=== PATIENT | male | born 1965 | race Caucasian/White ===

== ENCOUNTER 2016-09-13 14:51 | Inpatient (IN) | payer BC, OTHER ==
[~2016-09-13] VITALS: Ht 160 cm; Wt 80.9 kg
[~2016-09-13 14:51] MED LIST: ALPR1TAB6 PO; CARV6.252 PO; CLOP75TA PO; LISI-338 PO; RANI150T2 PO; SENN8.6C2 PO; SIMV40TA3 PO
[2016-09-13 15:50] LABS: BASO # 0.1 x10^3/uL (0.0-0.2); BASO % 1 % (0-3); EOS % 0 % (0-3); HEMATOCRIT 49.8 % (39.0-53.0); HEMOGLOBIN 16.5 g/dL (13.0-17.5); LYMPH # 1.1 x10^3/uL (1.0-4.8); LYMPH % 11 % (24-48); MEAN CORPUSCULAR HEMOGLOBIN 29 pg (25-35); MEAN CORPUSCULAR HGB CONC 33 g/dL (31-37); MEAN CORPUSCULAR VOLUME 88 fL (79-100); MONO % 18 % (0-9); NEUT % 71 % (31-73); PLATELET COUNT 233 x10^3/uL (140-400); RED BLOOD COUNT 5.64 x10^6/uL (4.30-5.70); RED CELL DISTRIBUTION WIDTH 13.6 % (11.5-14.5)
--- NOTE | 2016-09-13 16:05 | RAD ---
Indication hyperglycemia. Cough. A single view of the chest was obtained. Comparison is made to an examination 12/14/2005. The patient is now postoperative. Heart size is unchanged. A focal infiltrate is not seen. Significant pleural fluid is not present. There is no pneumothorax. IMPRESSION: No acute finding apparent in the chest
[2016-09-13 16:11] LABS: ALBUMIN 3.3 g/dL (3.4-5.0); CALCIUM 8.5 mg/dL (8.5-10.1); CREATININE 1.1 mg/dL (0.7-1.3); DIRECT BILIRUBIN 0.1 mg/dL (0.0-0.2); GFR 71.4; POTASSIUM 4.8 mmol/L (3.5-5.1); TOTAL BILIRUBIN 0.5 mg/dL (0.2-1.0); TOTAL PROTEIN 7.7 g/dL (6.4-8.2)
[2016-09-13 17:46] LABS: HCO3 ABG 22 mmol/L (21-28); PCO2 ABG 39 mmHg (35-46); PH ABG 7.38 (7.35-7.45); PO2 ABG 60 mmHg (75-108); SAT O2 ABG 91 % (92-99)
[2016-09-13 17:47] LABS: FIO2 ABG 21
--- NOTE | 2016-09-13 17:58 | PHYS DOC ---
Past Medical History Past Medical History: Anxiety, COPD, CVA, Diabetes-Type II, GERD, High Cholesterol, Hypertension, [place] Additional Past Medical Histor: X 2 CARDIAC STENTS,SLEEP DISORDER Past Surgical History: Coronary Bypass Surgery Additional Past Surgical Histo: PIG HEART VALVE Alcohol Use: Rarely Drug Use: None Adult General Chief Complaint Chief Complaint: NAUSEA/VOMITING/DIARRHA HPI HPI 50-year-old male presenting to the emergency department today with cough watery diarrhea nausea vomiting. This all started approximately 24-48 hours ago. He denies abdominal pain chest pain or shortness of breath. His cough is nonproductive. He denies fevers or chills. Location lungs and GI tract. Duration intermittent. No alleviating factors. No specific timing present. Nonradiating. Review of systems is negative for chest pain shortness of breath abdominal pain. Positive for diarrhea. All other review of systems is negative unless otherwise noted in history of present illness. Review of Systems Review of Systems SEE ABOVE. Current Medications Current Medications Current Medications Medications (Trade) Dose Ordered Sig/Monica Start Time Stop Time Status Last Admin Dose Admin Insulin Human Regular 10 unit 10 unit 1X ONCE 09/13/16 18:00 09/13/16 18:01 UNV Sodium Chloride (Iv Sodium Chloride 0.9% 1000ml Bag) 1,000 ml @ 1,000 mls/hr 1X ONCE 09/13/16 18:00 09/13/16 18:59 UNV Allergies Allergies Allergies Coded Allergies Type Severity Reaction Last Updated Verified Penicillins Allergy Severe anaphylaxis 06/13/16 Yes Tetracyclines Allergy Severe 06/13/16 No aspirin Allergy Severe Anaphylaxis 06/13/16 No Uncoded Allergies Type Severity Reaction Last Updated Verified mushrooms Allergy Severe 06/13/16 Physical Exam Physical Exam Constitutional: Well developed, well nourished, no acute distress, non-toxic appearance. HENT: Normocephalic, atraumatic, bilateral external ears normal, oropharynx moist, no oral exudates, nose normal. [] Eyes: PERRLA, EOMI, conjunctiva normal, no discharge. Neck: Normal range of motion, no tenderness, supple, no stridor. Cardiovascular:Heart rate regular rhythm, no murmur [] Lungs & Thorax: Bilateral breath sounds clear to auscultation Abdomen: Soft nontender abdomen without rebound tenderness or guarding present. Negative McBurneys point. Negative Bose sign. No ecchymosis present. Skin: Warm, dry, no erythema, no rash. [] Back: No tenderness, no CVA tenderness. Extremities: No tenderness, no cyanosis, no clubbing, ROM intact, no edema. [] Neurologic: Alert and oriented X 3, normal motor function, normal sensory function, no focal deficits noted. Psychologic: Affect normal, judgement normal, mood normal. [] Current Patient Data Vital Signs Vital Signs Date Time Temp Pulse Resp B/P Pulse Ox O2 Delivery O2 Flow Rate FiO2 09/13/16 15:07 22 121/72 94 Room Air Lab Values Laboratory Tests Test 09/13/16 15:20 09/13/16 15:39 09/13/16 16:10 09/13/16 17:40 White Blood Count 10.0x10^3/uL (4.0-11.0) Red Blood Count 5.64x10^6/uL (4.30-5.70) Hemoglobin 16.5g/dL (13.0-17.5) Hematocrit 49.8% (39.0-53.0) Mean Corpuscular Volume 88fL (79-100) Mean Corpuscular Hemoglobin 29pg (25-35) Mean Corpuscular Hemoglobin Concent 33g/dL (31-37) Red Cell Distribution Width 13.6% (11.5-14.5) Platelet Count 233x10^3/uL (140-400) Neutrophils (%) (Auto) 71% (31-73) Lymphocytes (%) (Auto) 11% (24-48) L Monocytes (%) (Auto) 18% (0-9) H Eosinophils (%) (Auto) 0% (0-3) Basophils (%) (Auto) 1% (0-3) Neutrophils # (Auto) 7.1x10^3uL (1.8-7.7) Lymphocytes # (Auto) 1.1x10^3/uL (1.0-4.8) Monocytes # (Auto) 1.8x10^3/uL (0.0-1.1) H Eosinophils # (Auto) 0.0x10^3/uL (0.0-0.7) Basophils # (Auto) 0.1x10^3/uL (0.0-0.2) Sodium Level 131mmol/L (136-145) L Potassium Level 4.8mmol/L (3.5-5.1) Chloride Level 94mmol/L (98-107) L Carbon Dioxide Level 24mmol/L (21-32) Anion Gap 13 (6-14) Blood Urea Nitrogen 15mg/dL (8-26) Creatinine 1.1mg/dL (0.7-1.3) Estimated GFR (Cockcroft-Gault) 71.4 Glucose Level 638mg/dL (70-99) *H Serum Osmolality 310mOsm/Kg (279-304) H Calcium Level 8.5mg/dL (8.5-10.1) Total Bilirubin 0.5mg/dL (0.2-1.0) Direct Bilirubin 0.1mg/dL (0.0-0.2) Aspartate Amino Transferase (AST) 22U/L (15-37) Alanine Aminotransferase (ALT) 13U/L (16-63) L Alkaline Phosphatase 103U/L (46-116) US-Wag-O-Type Natriuretic Peptide 171pg/mL (0-124) H Total Protein 7.7g/dL (6.4-8.2) Albumin 3.3g/dL (3.4-5.0) L Lipase 100U/L (73-393) Troponin I Quantitative < 0.017ng/mL (0.000-0.055) Lactic Acid Level 1.4mmol/L (0.4-2.0) O2 Saturation 91% (92-99) L Arterial Blood pH 7.38 (7.35-7.45) Arterial Blood pCO2 at Patient Temp 39mmHg (35-46) Arterial Blood pO2 at Patient Temp 60mmHg (75-108) L Arterial Blood HCO3 22mmol/L (21-28) Arterial Blood Base Excess -3mmol/L (-3-3) FiO2 21 Laboratory Tests 09/13/16 15:20 Laboratory Tests 09/13/16 15:20 EKG EKG EKG shows sinus tachycardia. [place] is leftward. Intervals are within normal limits. ST segments are congruent. Varying baseline present. [] Course & Med Decision Making Course & Med Decision Making Pertinent Labs and Imaging studies reviewed. (See chart for details) [] 42-year-old male presenting to the emergency department today with hyperglycemia and nausea vomiting and diarrhea. On examination the patient's vital signs showed that he was tachycardic with mild low SPO2 otherwise normal blood pressure. Physical exam showed tachycardia otherwise nontender abdomen. EKG unremarkable area mild LVH. Chest x-ray unremarkable. Blood work sent which showed hyperglycemia without evidence of acidosis. The patient was given insulin and IV fluids in the emergency department and admitted to Dr. Villanueva the patient's primary care provider for further evaluation workup and care. Dragon Disclaimer Dragon Disclaimer This electronic medical record was generated, in whole or in part, using a voice recognition dictation system. Departure Departure Impression: Primary Impression: Hyperglycemia Additional Impression: Hyperosmolarity due to secondary diabetes Disposition: ADMITTED INPATIENT Admitting Physician: Ron Casiano Condition: STABLE Referrals: AILIN AGUILAR MD (PCP) Problem Qualifiers ANNY VALE MD Sep 13, 2016 17:58
[2016-09-13] MEDS ORDERED: INSULIN REGULAR 100 UNIT/ML 10ML VIAL. IV ONE (18:00)
[2016-09-13] MEDS ORDERED: IV NORMAL SALINE 1000ML BAG 1,000 ML IV ONE ×2 (18:00)
[2016-09-13 18:25] LABS: BILIRUBIN,URINE NEGATIVE (NEG); GLUCOSE,URINE >=1000 mg/dL (NEG); NITRITE,URINE NEGATIVE (NEG); PROTEIN,URINE NEGATIVE (NEG-TRACE); UROBILINOGEN,URINE 0.2 mg/dL (0.2 mg/dL)
[2016-09-13 18:34] LABS: BACTERIA,URINE 0 /HPF (0-FEW); RBC,URINE 0 /HPF (0-2); SQUAMOUS EPITHELIAL CELL,UR OCC /LPF; WBC,URINE OCC /HPF (0-4)
[2016-09-13 19:30] VITALS: BP 130/81
--- NOTE | 2016-09-13 20:16 | ACF ---
Admission Forms Criteria Admission Criteria Met?: Pending STEPHENIE MAYEN Sep 13, 2016 20:16 ANNY VALE MD Sep 19, 2016 23:28
[2016-09-13] MEDS ORDERED: TRAZ100T12 PO (21:29)
[2016-09-13] MEDS ORDERED: INSU100V13 SQ (21:39)
[2016-09-13] MEDS ORDERED: INSU100C4 SQ (21:39)
[2016-09-13] MEDS ORDERED: INSULIN DETEMIR 300 UNITS/3 ML INSULN.PEN. SQ SCH (22:00)
[2016-09-13] MEDS: SIMVASTATIN 40 MG TABLET. PO SCH (22:53)
[2016-09-13] MEDS: FAMOTIDINE 20 MG TABLET. PO SCH (22:53)
[2016-09-13 23:00] VITALS: BP 109/65
[2016-09-13] MEDS ORDERED: traZODone 100 MG TABLET. PO ONE (23:00)
[2016-09-13] MEDS ORDERED: ALPRAZOLAM 1 MG TABLET PO ONE (23:00)
[2016-09-14 03:00] VITALS: BP 107/65
--- NOTE | 2016-09-14 06:32 | EKG ---
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
[2016-09-14 07:05] VITALS: BP 93/60
[2016-09-14] MEDS ORDERED: INSULIN ASPART 300 UNITS/3 ML INSULN.PEN SQ SCH (07:30)
[2016-09-14] MEDS: INSULIN ASPART 300 UNITS/3 ML INSULN.PEN SQ SCH ×3 (08:30→16:30)
[2016-09-14] MEDS: INSULIN DETEMIR 300 UNITS/3 ML INSULN.PEN. SQ SCH ×2 (09:00→21:45)
[2016-09-14] MEDS: CARVEDILOL 6.25 MG TABLET PO SCH ×2 (09:02→17:16)
[2016-09-14] MEDS: CLOPIDOGREL BISULFATE 75 MG TABLET PO SCH (09:02)
[2016-09-14] MEDS: LISINOPRIL 5 MG TABLET. PO SCH (09:02)
[2016-09-14] MEDS: FAMOTIDINE 20 MG TABLET. PO SCH ×2 (09:02→21:35)
--- NOTE | 2016-09-14 10:13 | PDOC ---
OBJECTIVE Vital Signs Vital Signs Date Time Temp Pulse Resp B/P Pulse Ox O2 Delivery O2 Flow Rate FiO2 09/14/16 09:02 99 107/65 09/14/16 09:02 99 107/65 09/14/16 07:05 99.5 104 16 93/60 94 Room Air 99.5 09/14/16 03:00 97.9 99 18 107/65 91 Room Air 97.9 09/14/16 02:00 Room Air 09/13/16 23:00 97.7 89 18 109/65 92 Room Air 97.7 09/13/16 19:30 98.2 93 16 130/81 95 Room Air 98.2 09/13/16 18:30 77 112/64 95 Room Air 09/13/16 17:15 88 117/62 93 Room Air 09/13/16 16:15 75 112/83 94 Room Air 09/13/16 15:07 22 121/72 94 Room Air I & O Intake and Output 09/14/16 07:00 Intake Total 1000 ml Balance 1000 ml IV Total 1000 ml # Bowel Movements 4 ASSESSMENT/PLAN Assessment/Plan [id number] H&P dictated Problems: COMMENT Lab Laboratory Tests Test 09/13/16 15:20 09/13/16 15:39 09/13/16 16:10 09/13/16 17:40 White Blood Count 10.0x10^3/uL (4.0-11.0) Red Blood Count 5.64x10^6/uL (4.30-5.70) Hemoglobin 16.5g/dL (13.0-17.5) Hematocrit 49.8% (39.0-53.0) Mean Corpuscular Volume 88fL (79-100) Mean Corpuscular Hemoglobin 29pg (25-35) Mean Corpuscular Hemoglobin Concent 33g/dL (31-37) Red Cell Distribution Width 13.6% (11.5-14.5) Platelet Count 233x10^3/uL (140-400) Neutrophils (%) (Auto) 71% (31-73) Lymphocytes (%) (Auto) 11% (24-48) Monocytes (%) (Auto) 18% (0-9) Eosinophils (%) (Auto) 0% (0-3) Basophils (%) (Auto) 1% (0-3) Neutrophils # (Auto) 7.1x10^3uL (1.8-7.7) Lymphocytes # (Auto) 1.1x10^3/uL (1.0-4.8) Monocytes # (Auto) 1.8x10^3/uL (0.0-1.1) Eosinophils # (Auto) 0.0x10^3/uL (0.0-0.7) Basophils # (Auto) 0.1x10^3/uL (0.0-0.2) Sodium Level 131mmol/L (136-145) Potassium Level 4.8mmol/L (3.5-5.1) Chloride Level 94mmol/L (98-107) Carbon Dioxide Level 24mmol/L (21-32) Anion Gap 13 (6-14) Blood Urea Nitrogen 15mg/dL (8-26) Creatinine 1.1mg/dL (0.7-1.3) Estimated GFR (Cockcroft-Gault) 71.4 Glucose Level 638mg/dL (70-99) Serum Osmolality 310mOsm/Kg (279-304) Calcium Level 8.5mg/dL (8.5-10.1) Total Bilirubin 0.5mg/dL (0.2-1.0) Direct Bilirubin 0.1mg/dL (0.0-0.2) Aspartate Amino Transf (AST/SGOT) 22U/L (15-37) Alanine Aminotransferase (ALT/SGPT) 13U/L (16-63) Alkaline Phosphatase 103U/L (46-116) RX-Uhb-C-Type Natriuretic Peptide 171pg/mL (0-124) Total Protein 7.7g/dL (6.4-8.2) Albumin 3.3g/dL (3.4-5.0) Lipase 100U/L (73-393) Troponin I Quantitative < 0.017ng/mL (0.000-0.055) Lactic Acid Level 1.4mmol/L (0.4-2.0) O2 Saturation 91% (92-99) Arterial Blood pH 7.38 (7.35-7.45) Arterial Blood pCO2 at Patient Temp 39mmHg (35-46) Arterial Blood pO2 at Patient Temp 60mmHg (75-108) Arterial Blood HCO3 22mmol/L (21-28) Arterial Blood Base Excess -3mmol/L (-3-3) FiO2 21 Test 09/13/16 18:13 09/13/16 20:50 09/14/16 07:11 09/14/16 07:57 Urine Color Yellow Urine Clarity Clear Urine pH 5.0 Urine Specific Tolar >=1.030 Urine Protein Negativemg/dL (NEG-TRACE) Urine Glucose (UA) >=1000mg/dL (NEG) Urine Ketones (Stick) 15mg/dL (NEG) Urine Blood Negative (NEG) Urine Nitrite Negative (NEG) Urine Bilirubin Negative (NEG) Urine Urobilinogen Dipstick 0.2mg/dL (0.2 mg/dL) Urine Leukocyte Esterase Negative (NEG) Urine RBC 0/HPF (0-2) Urine WBC Occ/HPF (0-4) Urine Squamous Epithelial Cells Occ/LPF Urine Bacteria 0/HPF (0-FEW) Glucose (Fingerstick) 440mg/dL (70-99) 263mg/dL (70-99) 268mg/dL (70-99) MARCIN REED MD Sep 14, 2016 10:13
[2016-09-14 11:27] VITALS: BP 95/60
[2016-09-14] MEDS: IV 1/2 NORMAL SALINE 1,000 ML IV SCH ×2 (11:38→12:03)
[2016-09-14 14:01] LABS: OBC FLU VALID
[2016-09-14 14:45] LABS: NEG OBC FOB NEG; POS OBC FOB POS
[2016-09-14 15:23] VITALS: BP 112/69
[2016-09-14 19:00] VITALS: BP 92/59
--- NOTE | 2016-09-14 20:29 | PREOP HP ---
DATE OF SERVICE: PATIENT'S ROOM: 521. HISTORY OF PRESENT ILLNESS: The patient is a 50-year-old gentleman who presented to the Emergency Room complaining of cough, watery diarrhea, nausea and vomiting. He started with these symptoms about 2-3 days prior to arrival. Has been having abdominal pain, nausea and vomiting, cough and shortness of breath. His cough is dry and nonproductive. He denies fever or chills. He had stopped taking his insulin because of the nausea, vomiting, diarrhea. He was afraid he will be too low. On his arrival, his blood sugar was very high over 400. PAST MEDICAL HISTORY: Significant for diabetes mellitus, insulin requiring, COPD, asthma, gastroesophageal reflux disease, anxiety, coronary artery disease and previous heart attack, previous coronary artery bypass graft, valve replacement and coronary stent. He also has a previous history of CVA with no residual, hyperlipidemia and hypertension. REVIEW OF SYSTEMS: CONSTITUTIONAL: Denies fever or chills. EYES: Denies visual changes. UPPER RESPIRATORY: Denies sore throat, but does have congestion. RESPIRATORY: He does have dry cough. CARDIAC: Does have chest pain due to coughing. GASTROINTESTINAL: Nausea, vomiting, diarrhea as mentioned above. No melena or hematochezia. GENITOURINARY: He does have urinary frequency. NEUROLOGICAL: Denies focal deficit or headache. PHYSICAL EXAMINATION: GENERAL: Well developed, well nourished, in no acute distress. HEENT: Normocephalic, atraumatic. Eyes: Pupils equal, reactive to light and accommodation. NECK: Supple. HEART: Regular rate and rhythm. LUNGS: Fairly clear to auscultation. ABDOMEN: Soft, nontender, no organomegaly, no masses, no bruits, no ascites. EXTREMITIES: No edema, clubbing or cyanosis. NEUROLOGIC: Alert and oriented with no focal deficit. DERMATOLOGY: No rashes. IMPRESSION: 1. Gastroenteritis symptoms. The patient is admitted for IV hydration. We will send stool for culture. 2. Hyperglycemia. 3. Diabetes mellitus type 2, insulin requiring. 4. Hyponatremia due to nausea and vomiting. 5. Coronary artery disease and history of coronary artery bypass graft. 6. History of valve replacement. 7. Hypertension. 8. Hyperlipidemia. 9. COPD and asthma. 10. Gastroesophageal reflux disease. MARCIN REED MD DR: Rich JOB#: [id number] / [id number]
[2016-09-14] MEDS: traZODone 100 MG TABLET. PO SCH (21:35)
[2016-09-14] MEDS: ALPRAZOLAM 1 MG TABLET PO SCH (21:35)
[2016-09-14] MEDS: SIMVASTATIN 40 MG TABLET. PO SCH (21:36)
[2016-09-14 23:00] VITALS: BP 86/53
[2016-09-14] MEDS ORDERED: IPRATRPIUM/ALBUTEROL 0.5/2.5MG 3 ML NEBU. NEB ONE (23:30)
[2016-09-15 03:03] VITALS: BP 92/61
[2016-09-15] MEDS ORDERED: DEXTROSE 50% 25 GM / 50ML DISP.SYRIN. IV PRN (03:30)
[2016-09-15 05:54] LABS: HEMATOCRIT 41.3 % (39.0-53.0); HEMOGLOBIN 14.1 g/dL (13.0-17.5); RED BLOOD COUNT 4.84 x10^6/uL (4.30-5.70); RED CELL DISTRIBUTION WIDTH 13.2 % (11.5-14.5); WHITE BLOOD COUNT 8.3 x10^3/uL (4.0-11.0)
[2016-09-15] MEDS: IV 1/2 NORMAL SALINE 1,000 ML IV SCH ×2 (05:54→11:40)
[2016-09-15 06:14] LABS: CALCIUM 8.3 mg/dL (8.5-10.1); CREATININE 0.6 mg/dL (0.7-1.3); GFR 143.8; POTASSIUM 3.1 mmol/L (3.5-5.1)
[2016-09-15 07:00] VITALS: BP 87/48
[2016-09-15] MEDS: INSULIN ASPART 300 UNITS/3 ML INSULN.PEN SQ SCH ×6 (07:30→17:36)
[2016-09-15] MEDS: CARVEDILOL 6.25 MG TABLET PO SCH (08:00)
[2016-09-15] MEDS: FAMOTIDINE 20 MG TABLET. PO SCH ×2 (08:57→20:16)
[2016-09-15] MEDS: CLOPIDOGREL BISULFATE 75 MG TABLET PO SCH (08:57)
[2016-09-15] MEDS: LISINOPRIL 5 MG TABLET. PO SCH (09:00)
[2016-09-15] MEDS: INSULIN DETEMIR 300 UNITS/3 ML INSULN.PEN. SQ SCH ×2 (09:00→20:21)
[2016-09-15] MEDS: IPRATRPIUM/ALBUTEROL 0.5/2.5MG 3 ML NEBU. NEB SCH ×4 (09:03→20:18)
[2016-09-15 11:00] VITALS: BP 99/56
--- NOTE | 2016-09-15 12:53 | PDOC ---
SUBJECTIVE Subjective no N/V but still with diarrhea, no further cough OBJECTIVE Vital Signs Vital Signs Date Time Temp Pulse Resp B/P Pulse Ox O2 Delivery O2 Flow Rate FiO2 09/15/16 12:26 Room Air 09/15/16 11:00 97.7 84 17 99/56 93 Room Air 97.7 09/15/16 09:05 97 Room Air 09/15/16 08:00 Room Air 09/15/16 07:00 97.5 85 17 87/48 92 Room Air 97.5 09/15/16 03:03 96.3 89 18 92/61 92 Room Air 96.3 09/14/16 23:42 97 Room Air 09/14/16 23:00 97.7 86 20 86/53 94 Room Air 97.7 09/14/16 19:00 97.7 89 20 92/59 92 Room Air 97.7 09/14/16 17:16 91 112/69 09/14/16 15:23 97.9 91 14 112/69 95 Room Air 97.9 I & O Intake and Output 09/15/16 07:00 Intake Total 3759 ml Output Total 450 ml Balance 3309 ml Intake Oral 1800 ml IV Total 1000 ml Other 959 ml Output Urine Total 450 ml # Bowel Movements 1 PHYSICAL EXAM Physical Exam lungs clear heart RRR abd soft ext no edema ASSESSMENT/PLAN Assessment/Plan 1. Gastroenteritis still with diarrhea continue hydration c.diff neg, stool guaiac neg, supportive. 2. Hyperglycemia.improved 3. hypokalemia replacing 4. Diabetes mellitus type 2, insulin requiring. 5. Hyponatremia due to nausea and vomiting.improved 6. Coronary artery disease and history of coronary artery bypass graft. 7. History of valve replacement. 8. Hypertension. 9. Hyperlipidemia. 10. COPD and asthma. 11. Gastroesophageal reflux disease. hope continue to improve if so plan home in AM Problems: COMMENT Lab Laboratory Tests Test 09/14/16 12:57 09/14/16 13:25 09/14/16 17:00 09/14/16 20:12 Influenza Type A Antigen Negative (NEGATIVE) Influenza Type B Antigen Negative (NEGATIVE) Stool Occult Blood Negative (NEG) Glucose (Fingerstick) 91mg/dL (70-99) 161mg/dL (70-99) Test 09/15/16 05:05 09/15/16 08:17 09/15/16 11:44 White Blood Count 8.3x10^3/uL (4.0-11.0) Red Blood Count 4.84x10^6/uL (4.30-5.70) Hemoglobin 14.1g/dL (13.0-17.5) Hematocrit 41.3% (39.0-53.0) Mean Corpuscular Volume 85fL (79-100) Mean Corpuscular Hemoglobin 29pg (25-35) Mean Corpuscular Hemoglobin Concent 34g/dL (31-37) Red Cell Distribution Width 13.2% (11.5-14.5) Platelet Count 190x10^3/uL (140-400) Sodium Level 138mmol/L (136-145) Potassium Level 3.1mmol/L (3.5-5.1) Chloride Level 105mmol/L (98-107) Carbon Dioxide Level 26mmol/L (21-32) Anion Gap 7 (6-14) Blood Urea Nitrogen 10mg/dL (8-26) Creatinine 0.6mg/dL (0.7-1.3) Estimated GFR (Cockcroft-Gault) 143.8 Glucose Level 129mg/dL (70-99) Calcium Level 8.3mg/dL (8.5-10.1) Glucose (Fingerstick) 108mg/dL (70-99) 176mg/dL (70-99) MARCIN REED MD Sep 15, 2016 12:53
[2016-09-15] MEDS ORDERED: POTASSIUM CHLORIDE 20 MEQ TABLET.ER. PO ONE (13:00)
[2016-09-15] MEDS: POTASSIUM CHLORIDE 30 MEQ in IV 1/2 NORMAL SALINE 1,000 ML IV SCH (13:32)
[2016-09-15 15:00] VITALS: BP 87/49
[2016-09-15] MEDS: CARVEDILOL 3.125 MG TABLET PO SCH (17:33)
[2016-09-15 19:00] VITALS: BP 92/46
[2016-09-15] MEDS ORDERED: MINERAL OIL/PETROLATUM,WHITE OPHTH OINT 3.5GM TUBE. OU PRN (19:15)
[2016-09-15] MEDS: ALPRAZOLAM 1 MG TABLET PO SCH (20:15)
[2016-09-15] MEDS: POLYVINYL ALCOHOL 1.4% OPHTH SOLUTION 15ML BOTTLE. OU PRN (20:15)
[2016-09-15] MEDS: SIMVASTATIN 40 MG TABLET. PO SCH (20:16)
[2016-09-15] MEDS: traZODone 100 MG TABLET. PO SCH (20:16)
[2016-09-15 23:00] VITALS: BP 102/64
[2016-09-16 03:00] VITALS: BP 105/70
[2016-09-16] MEDS: POTASSIUM CHLORIDE 30 MEQ in IV 1/2 NORMAL SALINE 1,000 ML IV SCH (04:05)
[2016-09-16 07:00] VITALS: BP 102/62
[2016-09-16 07:27] LABS: HEMATOCRIT 41.3 % (39.0-53.0); HEMOGLOBIN 13.5 g/dL (13.0-17.5); RED BLOOD COUNT 4.72 x10^6/uL (4.30-5.70); RED CELL DISTRIBUTION WIDTH 13.2 % (11.5-14.5); WHITE BLOOD COUNT 8.4 x10^3/uL (4.0-11.0)
[2016-09-16] MEDS: INSULIN ASPART 300 UNITS/3 ML INSULN.PEN SQ SCH ×6 (07:30→17:00)
[2016-09-16 07:42] LABS: CALCIUM 8.6 mg/dL (8.5-10.1); CREATININE 0.7 mg/dL (0.7-1.3); GFR 120.4; POTASSIUM 4.3 mmol/L (3.5-5.1)
[2016-09-16] MEDS: IPRATRPIUM/ALBUTEROL 0.5/2.5MG 3 ML NEBU. NEB SCH ×4 (07:50→20:16)
[2016-09-16] MEDS: CARVEDILOL 3.125 MG TABLET PO SCH ×2 (08:51→17:19)
[2016-09-16] MEDS: FAMOTIDINE 20 MG TABLET. PO SCH ×2 (08:51→21:16)
[2016-09-16] MEDS: CLOPIDOGREL BISULFATE 75 MG TABLET PO SCH (08:51)
[2016-09-16] MEDS ORDERED: INSULIN DETEMIR 300 UNITS/3 ML INSULN.PEN. SQ ONE (09:00)
[2016-09-16] MEDS: LISINOPRIL 5 MG TABLET. PO SCH (09:00)
[2016-09-16] MEDS: POLYVINYL ALCOHOL 1.4% OPHTH SOLUTION 15ML BOTTLE. OU PRN (09:54)
[2016-09-16 10:39] VITALS: BP 94/56
--- NOTE | 2016-09-16 10:56 | PDOC ---
SUBJECTIVE Subjective [id number] is better OBJECTIVE Vital Signs Vital Signs Date Time Temp Pulse Resp B/P Pulse Ox O2 Delivery O2 Flow Rate FiO2 09/16/16 10:39 97.7 88 18 94/56 93 Room Air 97.7 09/16/16 08:51 86 102/62 09/16/16 07:51 94 Room Air 09/16/16 07:00 97.9 86 20 102/62 91 Room Air 97.9 09/16/16 03:00 97.9 85 20 105/70 92 Room Air 97.9 09/15/16 23:00 97.5 87 20 102/64 92 Room Air 97.5 09/15/16 20:19 95 Room Air 09/15/16 20:00 Room Air 09/15/16 19:00 97.9 83 20 92/46 95 Room Air 97.9 09/15/16 17:33 87 91/58 09/15/16 16:00 Room Air 09/15/16 15:00 97.7 61 17 87/49 90 Room Air 97.7 09/15/16 12:26 Room Air 09/15/16 11:00 97.7 84 17 99/56 93 Room Air 97.7 I & O Intake and Output 09/16/16 07:00 Intake Total 1865 ml Balance 1865 ml Intake Oral 850 ml IV Total 1015 ml # Voids 4 PHYSICAL EXAM Physical Exam no change no abd pain ASSESSMENT/PLAN Assessment/Plan diarrhea better but BS is low will adjust insulin continue hydration , home in AM Problems: COMMENT Lab Laboratory Tests Test 09/15/16 11:44 09/15/16 16:32 09/15/16 20:20 09/15/16 21:24 Glucose (Fingerstick) 176mg/dL (70-99) 146mg/dL (70-99) 75mg/dL (70-99) 99mg/dL (70-99) Test 09/16/16 06:44 09/16/16 07:38 White Blood Count 8.4x10^3/uL (4.0-11.0) Red Blood Count 4.72x10^6/uL (4.30-5.70) Hemoglobin 13.5g/dL (13.0-17.5) Hematocrit 41.3% (39.0-53.0) Mean Corpuscular Volume 88fL (79-100) Mean Corpuscular Hemoglobin 29pg (25-35) Mean Corpuscular Hemoglobin Concent 33g/dL (31-37) Red Cell Distribution Width 13.2% (11.5-14.5) Platelet Count 180x10^3/uL (140-400) Sodium Level 141mmol/L (136-145) Potassium Level 4.3mmol/L (3.5-5.1) Chloride Level 105mmol/L (98-107) Carbon Dioxide Level 29mmol/L (21-32) Anion Gap 7 (6-14) Blood Urea Nitrogen 7mg/dL (8-26) Creatinine 0.7mg/dL (0.7-1.3) Estimated GFR (Cockcroft-Gault) 120.4 Glucose Level 268mg/dL (70-99) Calcium Level 8.6mg/dL (8.5-10.1) Glucose (Fingerstick) 253mg/dL (70-99) MARCIN REED MD Sep 16, 2016 10:56
[2016-09-16 15:39] VITALS: BP 100/63
[2016-09-16 19:00] VITALS: BP 113/67
[2016-09-16] MEDS ORDERED: INSULIN DETEMIR 300 UNITS/3 ML INSULN.PEN. SQ SCH ×3 (21:00)
[2016-09-16] MEDS: SIMVASTATIN 40 MG TABLET. PO SCH (21:16)
[2016-09-16] MEDS: traZODone 100 MG TABLET. PO SCH (21:16)
[2016-09-16] MEDS: ALPRAZOLAM 1 MG TABLET PO SCH (21:16)
[2016-09-16 23:00] VITALS: BP 103/72
[2016-09-17 03:00] VITALS: BP 100/64
[2016-09-17] MEDS: POTASSIUM CHLORIDE 30 MEQ in IV 1/2 NORMAL SALINE 1,000 ML IV SCH ×2 (03:00→11:37)
[2016-09-17 07:30] VITALS: BP 108/70
[2016-09-17] MEDS: IPRATRPIUM/ALBUTEROL 0.5/2.5MG 3 ML NEBU. NEB SCH ×3 (07:30→17:02)
[2016-09-17 09:12] VITALS: BP 101/70
[2016-09-17] MEDS: CLOPIDOGREL BISULFATE 75 MG TABLET PO SCH (09:15)
[2016-09-17] MEDS: FAMOTIDINE 20 MG TABLET. PO SCH (09:15)
[2016-09-17] MEDS: CARVEDILOL 3.125 MG TABLET PO SCH ×2 (09:15→16:46)
[2016-09-17] MEDS: LISINOPRIL 5 MG TABLET. PO SCH (09:16)
[2016-09-17] MEDS: INSULIN ASPART 300 UNITS/3 ML INSULN.PEN SQ SCH ×3 (09:24→16:46)
[2016-09-17] MEDS ORDERED: PROM5SYR2 PO (10:29)
[2016-09-17] MEDS ORDERED: INSU100I27 SQ (10:29)
[2016-09-17] MEDS ORDERED: CARV6.252 PO (10:29)
[2016-09-17] MEDS ORDERED: METF100010 PO (10:29)
--- NOTE | 2016-09-17 10:33 | PDOC ---
SUBJECTIVE Subjective feels better GI faust , still dry cough, coughed up blood due to throat irritation this AM OBJECTIVE Vital Signs Vital Signs Date Time Temp Pulse Resp B/P Pulse Ox O2 Delivery O2 Flow Rate FiO2 09/17/16 09:16 75 101/70 09/17/16 09:15 75 101/70 09/17/16 09:12 97.7 75 20 101/70 95 Room Air 97.7 09/17/16 07:31 94 Room Air 09/17/16 07:30 98.5 70 16 108/70 96 Room Air 98.5 09/17/16 03:00 97.7 71 19 100/64 93 Room Air 97.7 09/16/16 23:00 97.5 87 17 103/72 95 Room Air 97.5 09/16/16 20:18 97 Room Air 09/16/16 20:15 Room Air 09/16/16 19:00 97.3 97 18 113/67 95 Room Air 97.3 09/16/16 17:19 85 100/63 09/16/16 16:35 Room Air 09/16/16 15:39 97.9 85 16 100/63 95 Room Air 97.9 09/16/16 12:28 95 Room Air 09/16/16 10:39 97.7 88 18 94/56 93 Room Air 97.7 I & O Intake and Output 09/17/16 07:00 Intake Total 1495 ml Balance 1495 ml Intake Oral 480 ml IV Total 1015 ml # Voids 2 PHYSICAL EXAM Physical Exam abd soft no pain lungs clear heart RRR no edema ASSESSMENT/PLAN Assessment/Plan home today , only requiring 20 units levemir at HS, decrease coreg dose , stable Problems: COMMENT Lab Laboratory Tests Test 09/16/16 11:36 09/16/16 16:13 09/16/16 17:15 09/16/16 20:47 Glucose (Fingerstick) 259mg/dL (70-99) 69mg/dL (70-99) 72mg/dL (70-99) 179mg/dL (70-99) Test 09/17/16 00:22 09/17/16 07:38 Glucose (Fingerstick) 204mg/dL (70-99) 195mg/dL (70-99) MARCIN REED MD Sep 17, 2016 10:33
--- NOTE | 2016-09-17 10:38 | PDOC3 ---
Discharge Summary* Date of Admission: Sep 15, 2016 Date of Discharge: Sep 17, 2016 Admitting Diagnosis Problems Medical Problems: (1) Gastroenteritis Status: Acute (2) Hyperglycemia Status: Acute (3) Hyperglycemia Status: Acute (4) Hyperosmolarity due to secondary diabetes Status: Acute Final Diagnosis 1. Gastroenteritis , diarrehea , dehydration 2. Hyperglycemia. 3. Diabetes mellitus type 2, requiring lot less insulin than previous dose 4. Hyponatremia due to nausea and vomiting. 5. Coronary artery disease and history of coronary artery bypass graft. 6. History of valve replacement. 7. Hypertension. 8. Hyperlipidemia. 9. COPD and asthma. 10. Gastroesophageal reflux disease. Problems Medical Problems: (1) Gastroenteritis Status: Acute (2) Hyperglycemia Status: Acute (3) Hyperglycemia Status: Acute (4) Hyperosmolarity due to secondary diabetes Status: Acute Procedures CXR negative Brief Hospital Course Mr. Martínez is a 50 old [sex] who presented with [ ] Disposition/Orders: D/C to Home CONDITION AT DISCHARGE: Improved Diet: Cardiac, Consistent Carbohydrate Scheduled Alprazolam (Alprazolam) 1 MG PO QHS (Reported) Carvedilol (Carvedilol) 3.125 MG PO BID Clopidogrel Bisulfate (Clopidogrel) 75 MG PO DAILY (Reported) Insulin Aspart (Novolog) 20 UNIT SQ TIDAC (Reported) Insulin Detemir (Levemir) 60 UNIT SQ TIDACHC (Reported) Insulin Detemir (Levemir Flextouch) 20 UNITS SQ HS Lisinopril (Lisinopril) 5 MG PO DAILY (Reported) Metformin Hcl (Metformin Hcl Er) 1 TAB PO DAILY Promethazine HCl/Codeine (Prometh-Codein 6.25-10 mg/5 ml) 5 ML PO QID Ranitidine Hcl (Ranitidine Hcl) 150 MG PO BID (Reported) Simvastatin (Simvastatin) 40 MG PO DAILY (Reported) Trazodone Hcl (Trazodone Hcl) 1 TAB PO QHS (Reported) Miscellaneous Medications Sennosides (Senna) Unknown Dose PO (Reported) FOLLOW UP APPOINTMENT: Dr. Finn in 2 weeks Time Spent Total time spent with patient [] minutes for coordination of care, counseling, and education. MARCIN REED MD Sep 17, 2016 10:38
[2016-09-17 11:05] VITALS: BP 110/72
[2016-09-17 14:40] VITALS: BP 102/66
[2016-09-17 16:46] VITALS: BP 102/66
== END 2016-09-17 17:44 | disposition home health service (06) | DRG 392 ==
LOC: ER 14:51 → 5 NORTH 17:58 → OBSVTOIN 09-15 17:25
PROVIDERS: ADMIT Internal Medicine; ATTEND Internal Medicine
DX: K52.9 Noninfective gastroenteritis and colitis, unspecified (principal); E87.1 Hypo-osmolality and hyponatremia; E11.65 Type 2 diabetes mellitus with hyperglycemia; E78.00 Pure hypercholesterolemia, unspecified; E78.5 Hyperlipidemia, unspecified; E87.6 Hypokalemia; I10 Essential (primary) hypertension; I25.10 Atherosclerotic heart disease of native coronary artery without angina pectoris; J44.9 Chronic obstructive pulmonary disease, unspecified; J45.909 Unspecified asthma, uncomplicated; K21.9 Gastro-esophageal reflux disease without esophagitis; Z79.4 Long term (current) use of insulin; Z86.73 Personal history of transient ischemic attack (TIA), and cerebral infarction without residual deficits; I25.2 Old myocardial infarction; Z95.1 Presence of aortocoronary bypass graft; Z95.2 Presence of prosthetic heart valve; Z95.5 Presence of coronary angioplasty implant and graft; Z88.0 Allergy status to penicillin; Z88.6 Allergy status to analgesic agent; Z88.8 Allergy status to other drugs, medicaments and biological substances
CPT/HCPCS: 36415; 36600; 71010; 80048; 80076; 81001; 82274; 82805; 82947; 83605; 83690; 83880; 83930; 84484; 85027; 87324; 87804; 93005; 94250; 94640; 94760; G0378; G0379; J1815; J7030; J7620

== ENCOUNTER 2019-04-08 22:54 | Emergency (ER) | payer BC, MEDICAID, OTHER ==
[~2019-04-08] VITALS: Ht 160 cm; Wt 61.2 kg
[~2019-04-08 22:54] MED LIST changes: +CARV6.2511 PO; -CARV6.252 PO; +INSU100C4 SQ; +INSU100I27 SQ; +INSU100V13 SQ; +METF100010 PO; +PROM5SYR2 PO; +TRAZ-86 PO
[2019-04-09] VITALS: BP 105/66
[2019-04-09] MEDS ORDERED: HYDR-3164 PO (01:05)
--- NOTE | 2019-04-09 01:05 | PHYS DOC ---
Past Medical History Past Medical History: Anxiety, COPD, CVA, Diabetes-Type II, GERD, High Ch olesterol, Hypertension, GA Additional Past Medical Histor: X 2 CARDIAC STENTS,SLEEP DISORDER Past Surgical History: Coronary Bypass Surgery Additional Past Surgical Histo: PIG HEART VALVE Alcohol Use: Rarely Drug Use: None Adult General Chief Complaint Chief Complaint: RIB PAIN HPI HPI Patient is a 53 year old [f__sex] who presents with [] Review of Systems Review of Systems Constitutional: Denies fever or chills [] Eyes: Denies change in visual acuity, redness, or eye pain [] HENT: Denies nasal congestion or sore throat [] Respiratory: Denies cough or shortness of breath [] Cardiovascular: No additional information not addressed in HPI [] GI: Denies abdominal pain, nausea, vomiting, bloody stools or diarrhea [] : Denies dysuria or hematuria [] Musculoskeletal: Denies back pain or joint pain [] Integument: Denies rash or skin lesions [] Neurologic: Denies headache, focal weakness or sensory changes [] Endocrine: Denies polyuria or polydipsia [] All other systems were reviewed and found to be within normal limits, except as documented in this note. Current Medications Current Medications Current Medications Medications (Trade) Dose Ordered Sig/Monica Start Time Stop Time Status Last Admin Dose Admin Acetaminophen/ Hydrocodone Bitart (Lortab 5/325) 1 tab 1X ONCE 04/09/19 01:30 04/09/19 01:31 DC 04/09/19 01:34 1 TAB Allergies Allergies Allergies Coded Allergies Type Severity Reaction Last Updated Verified Penicillins Allergy Severe anaphylaxis 06/13/16 Yes Tetracyclines Allergy Severe 09/15/16 Yes aspirin Allergy Severe Anaphylaxis 09/15/16 Yes mushroom Allergy Severe ANAPHYLAXIS 09/15/16 Yes Physical Exam Physical Exam Constitutional: Well developed, well nourished, no acute distress, non-toxic appearance. [] HENT: Normocephalic, atraumatic, bilateral external ears normal, oropharynx moist, no oral exudates, nose normal. [] Eyes: PERRLA, EOMI, conjunctiva normal, no discharge. [] Neck: Normal range of motion, no tenderness, supple, no stridor. [] Cardiovascular:Heart rate regular rhythm, no murmur [] Lungs & Thorax: Bilateral breath sounds clear to auscultation [] Abdomen: Bowel sounds normal, soft, no tenderness, no masses, no pulsatile masses. [] Skin: Warm, dry, no erythema, no rash. [] Back: No tenderness, no CVA tenderness. [] Extremities: No tenderness, no cyanosis, no clubbing, ROM intact, no edema. [] Neurologic: Alert and oriented X 3, normal motor function, normal sensory function, no focal deficits noted. [] Psychologic: Affect normal, judgement normal, mood normal. [] Current Patient Data Vital Signs Vital Signs Date Time Temp Pulse Resp B/P (MAP) Pulse Ox O2 Delivery O2 Flow Rate FiO2 04/09/19 01:34 Room Air EKG EKG [] Radiology/Procedures Radiology/Procedures [] Course & Med Decision Making Course & Med Decision Making Pertinent Labs and Imaging studies reviewed. (See chart for details) [] Dragon Disclaimer Dragon Disclaimer This electronic medical record was generated, in whole or in part, using a voice recognition dictation system. Departure Departure Impression: Primary Impression: Contusion of rib on right side Disposition: HOME, SELF-CARE Condition: STABLE Referrals: AILIN AGUILAR MD (PCP) Patient Instructions: Incentive Spirometer, Rib Contusion Scripts Hydrocodone/Apap 5-325 (NORCO 5-325 TABLET) 1 Each Tablet 0.5-1 TAB PO PRN Q6HRS PRN for PAIN, #14 TAB 0 Refills Prov: VIRGINIA CHARLES DO 04/09/19 Problem Qualifiers Primary Impression: Contusion of rib on right side Encounter type: initial encounter Qualified Codes: S20.211A - Contusion of right front wall of thorax, initial encounter VIRGINIA CHARLES DO Apr 09, 2019 01:05
[2019-04-09] MEDS ORDERED: HYDROcodone/APAP 5/325MG 1 TAB TABLET PO ONE (01:30)
--- NOTE | 2019-04-09 05:41 | RAD ---
Right RIBS with PA chest. HISTORY: Injury, kicked by dog PA view was taken of the chest. Patient previous bypass and aortic valve surgery. There are no acute infiltrates. There is no pneumothorax or pleural effusion. AP and oblique views were taken of the right ribs. A rib fracture is not identified. Lower ribs are not optimally evaluated IMPRESSION: 1. No acute infiltrates. 2. No pneumothorax or pleural effusion. 3. No definite right rib fracture. Electronically signed by: Abdulkadir Lindsay MD (04/09/2019 5:37 AM) [facility]
== END 2019-04-09 02:00 | disposition home or self-care (01) ==
LOC: ER 22:54
DX: S20.211A Contusion of right front wall of thorax, initial encounter (principal); F41.9 Anxiety disorder, unspecified; J44.9 Chronic obstructive pulmonary disease, unspecified; E11.9 Type 2 diabetes mellitus without complications; K21.9 Gastro-esophageal reflux disease without esophagitis; E78.00 Pure hypercholesterolemia, unspecified; I10 Essential (primary) hypertension; I25.2 Old myocardial infarction; Z95.5 Presence of coronary angioplasty implant and graft; Z86.73 Personal history of transient ischemic attack (TIA), and cerebral infarction without residual deficits; W54.1XXA Struck by dog, initial encounter; Y93.89 Activity, other specified; Y92.89 Other specified places as the place of occurrence of the external cause; Y99.8 Other external cause status
CPT/HCPCS: 71101; 99284